=== PATIENT | female | born 1995 | race African-American/Black ===

== ENCOUNTER 2016-07-23 19:27 | Emergency (ER) | payer OTHER ==
[~2016-07-23] VITALS: Ht 157.5 cm; Wt 50.8 kg
[~2016-07-23 19:27] MED LIST: AMOXICILLIN500 MG PO; AMOXIL500 MG PO; DOCUSATE SODIU100 MG PO; IBUPROFEN800 MG PO; PERCOCET 325 MG1 TA2 PO; PRENATAL1 TA2 PO; TYLENOL #31 TAB PO; VICODIN5-300 PO
[2016-07-23 19:30] VITALS: BP 117/74
--- NOTE | 2016-07-23 19:48 | ED GI/GU/ABDOMINAL COMPLAINT ---
History of Present Illness General Chief Complaint: Abdominal Pain/Flank Pain Stated Complaint: ABD PAIN/BARRERA X1WEEK Vital Signs & Intake/Output Vital Signs & Intake/Output Vital Signs Date Time Temp Pulse Resp B/P Pulse O2 O2 Flow FiO2 Ox Delivery Rate 07/23 1929 97.7 95 18 117/74 96 Room Air Allergies Coded Allergies: shellfish derived (ANAPHYLAXIS 07/23/16) Reconcile Medications No Known Home Medications Triage Note: PT TO ED C/O ACHING HEADACHE AND SHARP LOW ABDOMINAL PAIN OFF AND ON FOR A WEEK. PAINS HAPPED TOGETHER. +N/V X2 IN ONE DAY 2 DAYS AGO. UNSURE OF . DENIES UTI S/S. 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 Past History Travel History Traveled to [place] past 21 day No Medical History Neurological: NONE EENT: NONE Cardiovascular: NONE Respiratory: NONE Gastrointestinal: NONE Hepatic: NONE Renal: NONE Musculoskeletal: NONE Psychiatric: NONE Endocrine: NONE Pneumonia Vaccine: 04/17/14 Influenza Vaccine: 04/17/14 Surgical History Surgical History: Psychosocial History What is your primary language Armenian Tobacco Use: Current Daily Use Daily Tobacco Use Amount/Type: => 5 Cigarettes daily ETOH Use: occasional use Illicit Drug Use: marijuana Progress Plan of Care: Orders Procedure Date/time Status URINE 07/23 1937 Active URINALYSIS 07/23 1937 Active Departure Departure Condition: Stable Referrals: PATIENT HAS NO PRIMARY CARE DR (PCP/Family) Departure Forms: Customer Survey General Discharge Information Prescriptions: Current Visit Scripts No Known Home Medications
--- NOTE | 2016-07-23 20:14 | ED GI/GU/ABDOMINAL COMPLAINT ---
History of Present Illness General Chief Complaint: Abdominal Pain/Flank Pain Stated Complaint: ABD PAIN/BARRERA X1WEEK Source: patient Exam Limitations: no limitations Vital Signs & Intake/Output Vital Signs & Intake/Output Vital Signs Date Time Temp Pulse Resp B/P Pulse O2 O2 Flow FiO2 Ox Delivery Rate 07/23 1930 97.7 95 18 117/74 96 Room Air ED Intake and Output 07/24 0000 07/23 1200 Intake Total Output Total Balance Patient 112 lb Weight Allergies Coded Allergies: shellfish derived (ANAPHYLAXIS 07/23/16) Reconcile Medications No Known Home Medications Triage Note: PT TO ED C/O ACHING HEADACHE AND SHARP LOW ABDOMINAL PAIN OFF AND ON FOR A WEEK. PAINS HAPPED TOGETHER. +N/V X2 IN ONE DAY 2 DAYS AGO. UNSURE OF . DENIES UTI S/S. 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 yes ? n Is pt currently ? No Onset: Abrupt Duration: week(s): (1), constant, continues in ED Timing: recent history Quality/Severity: mild, moderate, sharpness HPI: 20-year-old female comes into emergency room with complaints of lower abdominal pain has been going on for one week and associated headache intermittently. Denies any abdominal pain currently or any headache currently. Some intermittent low back pain but denies any back pain currently. One episode of vomiting. No fever chills. No changes in bowel movement. Denies any dysuria increased frequency or urgency with urination. Denies any vaginal discharge. Denies any other associated symptoms. (YESICA TRAYLOR) Past History Travel History Traveled to [place] past 21 day No Medical History Any Pertinent Medical History? see below for history Neurological: NONE EENT: NONE Cardiovascular: NONE Respiratory: NONE Gastrointestinal: NONE Hepatic: NONE Renal: NONE Musculoskeletal: NONE Psychiatric: NONE Endocrine: NONE Pneumonia Vaccine: 04/17/14 Influenza Vaccine: 04/17/14 Surgical History Surgical History: Psychosocial History What is your primary language Chilean Tobacco Use: Current Daily Use Daily Tobacco Use Amount/Type: => 5 Cigarettes daily ETOH Use: occasional use Illicit Drug Use: marijuana Family History Hx Contributory? No (YESICA TRAYLOR) Review of Systems Review of Systems Constitutional: Reports: no symptoms. EENTM: Reports: no symptoms. Respiratory: Reports: no symptoms. Cardiovascular: Reports: no symptoms. GI: Reports: see HPI. Genitourinary: Reports: no symptoms. Musculoskeletal: Reports: no symptoms. Skin: Reports: no symptoms. Neurological/Psychological: Reports: see HPI. Hematologic/Endocrine: Reports: no symptoms. Immunologic/Allergic: Reports: no symptoms. All Other Systems: Reviewed and Negative (YESICA TRAYLOR) Physical Exam Physical Exam General Appearance: well developed/nourished, no apparent distress, alert, awake , ON CELL PHONE Head: atraumatic, normal appearance Eyes: Bilateral: normal appearance, PERRL, EOMI. Ears, Nose, Throat, Mouth: hearing grossly normal, moist mucous membrane Neck: normal inspection, supple, full range of motion Respiratory: normal breath sounds, chest non-tender, no respiratory distress Cardiovascular: regular rate/rhythm Gastrointestinal: normal bowel sounds, soft, tenderness (MILD LEFT LOWER QUADRANT), NEGATIVE mCbURNEY'S POINT Back: normal inspection Extremities: normal range of motion Neurologic/Psych: awake, alert, oriented x 3, normal gait, normal mood/affect Core Measures ACS in differential dx? No Severe Sepsis Present: No Septic Shock Present: No (YESICA TRAYLOR) Progress Differential Diagnosis: appendicitis, biliary colic, intrauterine , kidney stone, ovarian cyst, ovarian torsion, pancreatitis, PID/cervicitis, peptic ulcer, PUD/GERD, perforated viscous, UTI/pyelo Plan of Care: Orders Procedure Date/time Status LIPASE 07/23 1954 Complete COMPREHENSIVE METABOLIC PANEL 07/23 1954 Complete CBC WITHOUT DIFFERENTIAL 07/23 1954 Complete URINE 07/23 1937 Complete URINALYSIS 07/23 1937 Complete Laboratory Tests 07/23/162034: Anion Gap 8, Estimated GFR > 60, BUN/Creatinine Ratio 18.6, Glucose 78, Calcium 9.7, Total Bilirubin 0.5, AST 27, ALT 29, Alkaline Phosphatase 75, Total Protein 7.6, Albumin 4.4, Globulin 3.2, Albumin/Globulin Ratio 1.4, Lipase 218, CBC w Diff NO MAN DIFF REQ, RBC 3.85 L, MCV 93.4, MCH 31.4 H, RDW 13.5, MPV 8.9, Gran % 61.0, Lymphocytes % 25.4, Monocytes % 11.8 H, Eosinophils % 1.2, Basophils % 0.6, Absolute Granulocytes 3.9, Absolute Lymphocytes 1.6, Absolute Monocytes 0.8 H, Absolute Eosinophils 0.1, Absolute Basophils 0, PUBS MCHC 33.6 07/23/166: Urinalysis LIGHT H, Urine Color YEL, Urine Clarity HAZY H, Urine pH 7.0, Ur Specific [place] 1.020, Urine Protein TRACE H, Urine Ketones TRACE H, Urine Nitrite NEG, Urine Bilirubin NEG, Urine Urobilinogen 2.0 H, Ur Leukocyte Esterase NEG, Ur Microscopic SEDIMENT EXAMINED, Urine WBC 1-3 H, Ur Epithelial Cells FEW, Urine Mucus MOD H, Urine Hemoglobin TRACE-INTACT, Urine Glucose NEG, Urine Test NEGATIVE Initial ED EKG: none Comments: 07/23/2016 9:55:17 PM Patient clinically looks well. Nontoxic-appearing. In no apparent distress. No acute abdomen on exam. Asymptomatic at the moment. No suspicion for appendicitis. Discussed signs and symptoms of appendicitis to return if any worsening of symptoms. Follow-up with [facility] doctor as well as primary care doctor. Return if any other concerns. (MORGAN PARDO,YESICA) Departure Departure Disposition: HOME OR SELF CARE Condition: Stable Clinical Impression Primary Impression: Headache Secondary Impressions: Abdominal pain Referrals: PATIENT HAS NO PRIMARY CARE DR (PCP/Family) Additional Instructions: Take Motrin as prescribed. Follow-up with your primary care doctor. Return if any concerns worsening symptoms. Follow-up with your [facility] doctor. Please go over all results of today's visit with your primary care doctor. Contact your primary care doctor to let them know you were here in the emergency room. There may be nonspecific findings which may not be related to your visit today here in the emergency room but may require further evaluation and chronic monitoring by your primary care doctor. If you had a laceration today the chance of foreign body always remains. You should follow-up with your primary care doctor for recheck in 3-5 days for a wound check. If you had an x-ray done there is a chance that a fracture could have been missed on initial read and you should follow-up with your primary care doctor for repeat x-rays if symptoms persist. If your blood pressure was elevated here in the emergency room please have rechecked by her primary care doctor within the next 48 hours by your primary care doctor. If you were prescribed a narcotic here in the emergency room or any type of controlled substances you're not allowed to drive while taking this medication or operate any type of heavy machinery. Narcotics can make you feel lightheaded dizziness nausea and can cause constipation. You may need to filler picker a stool softener. Thank you for choosing [facility] emergency room. Please return to the emergency room immediately if you have any other concerns worsening of symptoms. Departure Forms: Customer Survey General Discharge Information Prescriptions: Current Visit Scripts No Known Home Medications (YESICA TRAYLOR) PA/FOUNDATION RELATIONS MANAGER Co-Sign Statement Statement: ED Attending supervision documentation- [] I saw and evaluated the patient. I have also reviewed all the pertinent lab results and diagnostic results. I agree with the findings and the plan of care as documented in the PA's/FOUNDATION RELATIONS MANAGER's documentation. [X] I have reviewed the ED Record and agree with the PA's/FOUNDATION RELATIONS MANAGER's documentation. [] Additions or exceptions (if any) to the PAs/FOUNDATION RELATIONS MANAGER's note and plan are summarized below: [] (AIDA CALHOUN,WYATT)
[2016-07-23 20:54] LABS: ABSOLUTE BASOPHIL COUNT 0 /CUMM (0.0-0.2); ABSOLUTE EOSINOPHIL COUNT 0.1 /CUMM (0.0-0.7); ABSOLUTE GRANULOCYTE CT 3.9 /CUMM (1.4-6.5); ABSOLUTE LYMPH COUNT 1.6 /CUMM (1.2-3.4); ABSOLUTE MONOCYTE COUNT 0.8 /CUMM (0.10-0.60); BASOPHIL % 0.6 % (0.0-2.0); EOSINOPHIL % 1.2 % (0-5); HEMATOCRIT 35.9 % (37-47); MEAN CORPUSCULAR HGB 31.4 PG (27.0-31.0); MEAN CORPUSCULAR HGB CONC 33.6 G/DL (33.0-37.0); MEAN CORPUSCULAR VOLUME 93.4 FL (81.0-99.0); MEAN PLATELET VOLUME 8.9 FL (7.4-10.4); PLATELET COUNT 290 /CUMM (130-400); RBC DISTRIBUTION WIDTH 13.5 % (11.5-14.5); RED BLOOD CELL CT 3.85 /CUMM (4.20-5.40); WHITE BLOOD CELL COUNT 6.4 /CUMM (4.8-10.8)
== END 2016-07-23 22:18 ==
LOC: ERH 19:27
PROVIDERS: Physician Assistant Medical
DX: R51 Headache (principal); R10.32 Left lower quadrant pain
CPT/HCPCS: 81001; 81025

== ENCOUNTER 2016-07-28 14:08 | Emergency (ER) | payer OTHER ==
[~2016-07-28] VITALS: Ht 157.5 cm; Wt 51.3 kg
[2016-07-28 14:15] VITALS: BP 106/74
[2016-07-28 15:14] LABS: ABSOLUTE BASOPHIL COUNT 0 /CUMM (0.0-0.2); ABSOLUTE EOSINOPHIL COUNT 0 /CUMM (0.0-0.7); ABSOLUTE GRANULOCYTE CT 2.5 /CUMM (1.4-6.5); ABSOLUTE LYMPH COUNT 0.8 /CUMM (1.2-3.4); ABSOLUTE MONOCYTE COUNT 0.6 /CUMM (0.10-0.60); BASOPHIL % 1.1 % (0.0-2.0); EOSINOPHIL % 0.6 % (0-5); GRANULOCYTE % 62.5 % (42.2-75.2); HEMATOCRIT 37.2 % (37-47); MEAN CORPUSCULAR HGB CONC 32.6 G/DL (33.0-37.0); MEAN PLATELET VOLUME 8.6 FL (7.4-10.4); PLATELET COUNT 217 /CUMM (130-400); RBC DISTRIBUTION WIDTH 13.4 % (11.5-14.5); RED BLOOD CELL CT 4.04 /CUMM (4.20-5.40); WHITE BLOOD CELL COUNT 4.1 /CUMM (4.8-10.8)
--- NOTE | 2016-07-28 16:32 | ED GENERAL ADULT ---
History of Present Illness General Chief Complaint: General Adult Stated Complaint: LOWER BACK PAIN/ABD PAIN/BARRERA Source: patient Exam Limitations: no limitations Vital Signs & Intake/Output Vital Signs & Intake/Output Vital Signs Date Time Temp Pulse Resp B/P Pulse O2 O2 Flow FiO2 Ox Delivery Rate 07/28 1432 Room Air Room Air 07/28 1415 97.1 106 20 106/74 98 Room Air Room Air Allergies Coded Allergies: shellfish derived (ANAPHYLAXIS 07/28/16) Reconcile Medications No Known Home Medications Triage Note: PT TO ED WITH C/O HEADACHES, FEVER, FEELS WEAK, WAS SEEN ON SUNDAY, GIVEN MOTRIN. "WAS FEELING OK, WENT TO WORK SUNDAY, BUT ONLY LAST UNTIL 12:30 AND GOT SENT HOME". Triage Nurses Notes Reviewed? yes : No Patient currently breastfeeds: No HPI: 20 year old woman seen for evaluation of headache, low back pain, and abdominal pain. She was seen in the [facility] ED for similar complaints for which she was discharged on oral medications for her symptoms with instructions to follow up with her OBGYN as an outpatient. She has a previously scheduled appointment with her OBGYN on 08/09/16 that she intends to go to. She felt better the evening after discharge but reports feeling the same and mildly worse since then. She went to work today and was sent home again for appearing ill. Presently she is complaining of persistent low back pain, intermittent abdominal pain and headache with subjective fevers. Otherwise she denies any lightheadedness,dizzy, palpitations, shortness of breath, nausea, vomiting, diarrhea. (YVETTE BAL MD) Past History Travel History Traveled to [place] past 21 day No Medical History Any Pertinent Medical History? 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 No (YVETTE BAL MD) Review of Systems Review of Systems Constitutional: Reports: see HPI. (YVETTE BAL MD) Review of Systems EENTM: Reports: no symptoms. Respiratory: Reports: see HPI, cough. Cardiovascular: Reports: no symptoms. GI: Reports: see HPI, abdominal pain. Genitourinary: Reports: no symptoms. Musculoskeletal: Reports: see HPI, muscle pain. Skin: Reports: no symptoms. Neurological/Psychological: Reports: no symptoms. Hematologic/Endocrine: Reports: no symptoms. Immunologic/Allergic: Reports: no symptoms. All Other Systems: Reviewed and Negative (CARLOS CALHOUN,JM Rico) Physical Exam Physical Exam General Appearance: well developed/nourished, no apparent distress, alert, awake Comments: General - well developed, well nourished young woman in no acute distress HEENT - NCAT, PERRL, EOMI, anicteric sclera, moist mucous membranes CVS - S1, S2 w/o m/g/r Resp - CTA bilaterally GI - Soft, nontender, nondistended, bowel sounds intacts, no organomegally Neuro - Awake and alert, CN II - XII grossly intact Ext - normal pulses, no cyanosis/clubbing/edema Core Measures ACS in differential dx? No CVA/TIA Diagnosis: No Severe Sepsis Present: No Septic Shock Present: No (YVETTE BAL MD) Physical Exam Head: atraumatic, normal appearance Eyes: Bilateral: PERRL, EOMI. Ears, Nose, Throat: normal pharynx, normal ENT inspection, MOIST MUCUS MEMBRANES Neck: normal inspection, supple, full range of motion Respiratory: normal breath sounds, chest non-tender, no respiratory distress, lungs clear Cardiovascular: regular rate/rhythm, normal peripheral pulses Gastrointestinal: normal bowel sounds, soft, non-tender, no organomegaly Back: normal inspection, normal range of motion Extremities: normal inspection, normal capillary refill, normal range of motion, no edema Neurologic/Psych: no motor/sensory deficits, awake, alert, oriented x 3, normal mood/affect Skin: intact, normal color, warm/dry, NO RASH Lymphatic: no anterior cervical tessy (CARLOS CALHOUN,JM Rico) Progress Differential Diagnoses I considered the following diagnoses in my evaluation of the patient: mononucleosis, influenza, gastroenteritis, PID, ovarian cysts, endometriosis Initial ED EKG: none Comments: Given patients history of present illness and recent ER workup it is possible she has persistent abdominal pathology. Presently she apears comfortable and nontoxic appearing. Complete blood count, comprehensive metabolic panel, and mono spot are normal or within normal limits. Lyme titers sent. UA Patient is to follow up with obgyn and to establish care with a primary care provider after discharge for further evaluation of her abdominal pain complaints. (MALLY CALHOUN,YVETTE) Differential Diagnoses I considered the following diagnoses in my evaluation of the patient: Plan of Care: Orders Procedure Date/time Status Add-on Test (ER Only) 07/28 1527 Active LYME TITRE 07/28 1502 Active RAPID VIRAL INFLUENZA A 07/28 1501 Complete URINALYSIS 07/28 1501 Complete MONOSPOT TEST 07/28 1501 Active COMPREHENSIVE METABOLIC PANEL 07/28 1501 Complete CBC WITHOUT DIFFERENTIAL 07/28 1501 Complete Laboratory Tests 07/28/16 1640: Urine Color YEL, Urine Clarity CLEAR, Urine pH 7.0, Ur Specific [place] 1.015, Urine Protein 30 H, Urine Ketones TRACE H, Urine Nitrite NEG, Urine Bilirubin NEG, Urine Urobilinogen 1.0, Ur Leukocyte Esterase NEG, Ur Microscopic SEDIMENT EXAMINED, Urine RBC RARE, Urine WBC 1-3 H, Ur Epithelial Cells MOD H, Urine Mucus MOD H, Urine Hemoglobin NEG, Urine Glucose NEG 07/28/16 1502: Anion Gap 8, Estimated GFR > 60, BUN/Creatinine Ratio 13.3, Glucose 77, Calcium 9.3, Total Bilirubin 0.3, AST 33, ALT 27, Alkaline Phosphatase 65, Total Protein 7.4, Albumin 4.2, Globulin 3.2, Albumin/Globulin Ratio 1.3, CBC w Diff NO MAN DIFF REQ, RBC 4.04 L, MCV 92.0, MCH 30.0, RDW 13.4, MPV 8.6, Gran % 62.5, Lymphocytes % 19.9 L, Monocytes % 15.9 H, Eosinophils % 0.6, Basophils % 1.1, Absolute Granulocytes 2.5, Absolute Lymphocytes 0.8 L, Absolute Monocytes 0.6, Absolute Eosinophils 0, Absolute Basophils 0, PUBS MCHC 32.6 L, Lyme Disease Antibody Pending, Infectious [place] Titer NEGATIVE Microbiology 07/28 1516 NASOPHARYN: Influenza Virus A & B Rapid Smear - COMP Departure Departure Disposition: HOME OR SELF CARE Condition: Stable Referrals: PATIENT HAS NO PRIMARY CARE DR (PCP/Family) Additional Instructions: Follow up with your OBGYN after discharge. Establish care with a PCP, a referral has been made to [facility]. Take the medications prescribed to you on your previous ED evaluation as directed. Call 911 or return to the ED if your symptoms worsen. Departure Forms: Customer Survey General Discharge Information Prescriptions: Current Visit Scripts No Known Home Medications (YVETTE BAL MD) Departure Clinical Impression Primary Impression: Viral syndrome Secondary Impressions: Abdominal pain, unspecified site Resident Co-Sign Statement Statement: ED Attending supervision documentation- [X] I saw and evaluated the patient. I have also reviewed all the pertinent lab results and diagnostic results. I agree with the findings and the plan of care as documented in the Resident's documentation. [X] I have reviewed the ED Record and agree with the Resident's documentation. [] Additions or exceptions (if any) to the Resident's note and plan are summarized below: [I have personally seen and examined this patient. I have read the above note and agree with what has been written. Pt presents with subjective fevers, myalgias, intermittent abd pain which is crampy in nature, intermittent, there are no aggrivating or mitigating factors, the pain lasts a few hours and then goes away. The pain is diffuse and rated at 4 out of 10. There is no radiation. Currently, the patient does not have any pain.] (CARLOS CALHOUN,JM Rico) Critical Care Note Critical Care Note Critical Care Time: non-applicable (YVETTE BAL MD)
== END 2016-07-28 17:30 ==
LOC: ERH 14:08
PROVIDERS: Internal Medicine Interventional Cardiology
DX: B34.9 Viral infection, unspecified (principal); R10.9 Unspecified abdominal pain
CPT/HCPCS: 86618; 81001; 87804; 87804-59

== ENCOUNTER 2017-06-11 08:46 | Emergency (ER) | payer OTHER ==
[~2017-06-11] VITALS: Ht 157.5 cm; Wt 53.5 kg
--- NOTE | 2017-06-11 10:08 | ED GI/GU/ABDOMINAL COMPLAINT ---
History of Present Illness General Chief Complaint: General Adult Stated Complaint: UPPER ABD PAIN AND LOW ABD PAIN Source: patient Exam Limitations: no limitations Vital Signs & Intake/Output Vital Signs & Intake/Output Vital Signs Date Time Temp Pulse Resp B/P B/P Pulse O2 O2 Flow FiO2 Mean Ox Delivery Rate 06/11 1044 98.4 72 18 111/72 100 Room Air 06/11 0855 97.1 66 18 122/80 97 Room Air ED Intake and Output 06/12 0000 06/11 1200 Intake Total Output Total Balance Patient 118 lb Weight Allergies Coded Allergies: shellfish derived (ANAPHYLAXIS 07/28/16) Reconcile Medications Cyclobenzaprine HCl 5 MG TABLET 1 TAB PO AT BEDTIME PRN Muscle spasms Triage Note: PT STATES THAT EVERY COUPLE OF MONTHS SHE GETS UPPER BACK PAIN AND LOW ABD PAIN THAT GOES AWAY AFTER A DAY, STATES THAT THE PAIN STARTED LAST PM AGAIN. DENIES N/V/D. AFEBRILE, DENIES URINARY SYMPTOMS Triage Nurses Notes Reviewed? yes LMP (ages 10-50): 05/13/2017 ? N Is pt currently ? No Onset: Gradual Duration: hour(s): Timing: multiple episodes today Quality/Severity: sharpness Severity Numbers: 5 Location: suprapubic, Upper back Radiation: no radiation Activities at Onset: none Prior Abdominal Problems: none HPI: Mrs Riley is a 21-year-old lady with a PMH of HSV who presents today with complaints of intermittent upper back pain and suprapubic discomfort over the past 12 hours. She reports that symptoms started gradually late yesterday evening with what she describes as a intermittent sharp pain in her upper back along the spine, nonradiating, no association with feeding, nausea, vomiting, fevers, chills, diarrhea or discomfort with urination. She also endorses some mild suprapubic discomfort she describes as aching. (Kelton CALHOUN,Michael) Past History Travel History Traveled to [place] past 21 day No Medical History Any Pertinent Medical History? 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 No (Michael Melara MD) Review of Systems Review of Systems Constitutional: Reports: see HPI. EENTM: Reports: no symptoms. Respiratory: Reports: no symptoms. Cardiovascular: Reports: no symptoms. GI: Reports: see HPI. Genitourinary: Reports: no symptoms. Musculoskeletal: Reports: see HPI. Skin: Reports: no symptoms. (Michael Melara MD) Physical Exam Physical Exam General Appearance: no apparent distress, alert, comfortable Head: normal appearance Eyes: Bilateral: EOMI. Ears, Nose, Throat, Mouth: moist mucous membrane Respiratory: normal breath sounds, no respiratory distress, lungs clear Cardiovascular: regular rate/rhythm Gastrointestinal: normal bowel sounds, soft, non-tender Back: normal inspection, normal range of motion, no vertebral tenderness Extremities: normal range of motion Core Measures ACS in differential dx? No Sepsis Present: No Sepsis Focused Exam Completed? No (Michael Melara MD) Progress Differential Diagnosis: musculoskeletal strain of the lumbar region Plan of Care: Orders Procedure Date/time Status URINE 06/11 856 Complete URINALYSIS 06/11 856 Complete Laboratory Tests 06/11/17 0903: Urine Color YEL, Urine Clarity CLEAR, Urine pH 6.0, Ur Specific [place] 1.025, Urine Protein NEG, Urine Ketones NEG, Urine Nitrite NEG, Urine Bilirubin NEG, Urine Urobilinogen 0.2, Ur Leukocyte Esterase NEG, Ur Microscopic EXAM NOT REQUIRED, Urine Hemoglobin NEG, Urine Glucose NEG, Urine Test NEGATIVE Initial ED EKG: none (Michael Melara MD) Departure Departure Time of Disposition: 1030 Disposition: HOME OR SELF CARE Condition: Stable Clinical Impression Primary Impression: Musculoskeletal pain Referrals: Patient Has No Primary Care Dr (PCP/Family) Additional Instructions: You were seen in the emergency room for upper back pain/musculoskeletal pain. Please take the prescribed medication as directed. Avoid driving/operating machinery while on this medication. Please follow-up with your PCP within the next 2 weeks or sooner if symptoms recur. Departure Forms: Customer Survey General Discharge Information Prescriptions: Current Visit Scripts Cyclobenzaprine HCl 1 TAB PO AT BEDTIME PRN Muscle spasms #7 TAB (Michael Melara MD) PA/SALES PROCESS MANAGER Co-Sign Statement Statement: ED Attending supervision documentation- [] I saw and evaluated the patient. I have also reviewed all the pertinent lab results and diagnostic results. I agree with the findings and the plan of care as documented in the PA's/SALES PROCESS MANAGER's documentation. [X] I have reviewed the ED Record and agree with the PA's/SALES PROCESS MANAGER's documentation. [] Additions or exceptions (if any) to the PAs/SALES PROCESS MANAGER's note and plan are summarized below: [] (Jeremiah CALHOUN,[place]cy)
[2017-06-11] MEDS ORDERED: CYCLOBENZAPRINE5 M2 PO (10:37)
[2017-06-11 10:44] VITALS: BP 111/72
== END 2017-06-11 10:45 ==
LOC: ERH 08:46
DX: M54.9 Dorsalgia, unspecified (principal)
CPT/HCPCS: 81003; 81025